=== PATIENT | male | born 1980 | race Caucasian/White ===

== ENCOUNTER 2022-09-27 09:22 | Emergency (ER) | payer BC ==
[~2022-09-27] VITALS: Ht 175.3 cm; Wt 73.0 kg
[2022-09-27 09:29] VITALS: BP 127/96
== END 2022-09-27 10:58 | disposition home or self-care (01) ==
LOC: ER 09:49
DX: R07.89 Other chest pain (principal); F15.10 Other stimulant abuse, uncomplicated; J45.909 Unspecified asthma, uncomplicated
CPT/HCPCS: 71045; 93005; 99283